=== PATIENT | male | born 1950 | race Asian ===

== ENCOUNTER 2023-05-11 04:25 | Inpatient (IN) | payer OTHER ==
[~2023-05-11] VITALS: Ht 162.6 cm; Wt 71.7 kg
[2023-05-11 04:30] VITALS: BP 153/83; PULSE 68; RESP 16; TEMP 97.8; O2SAT 98
[2023-05-11] MEDS ORDERED: ONDANSETRON 4 MG/2 ML VIAL IVP ONE (05:05)
[2023-05-11] MEDS ORDERED: MORPHINE SULFATE 4 MG/ML SYR IVP ONE ×2 (05:05→07:55)
[2023-05-11 05:41] LABS: BASOPHILS % (AUTO) 0.4 % (0.0-2.0); EOSINOPHILS % (AUTO) 0.2 % (0.0-4.0); HEMOGLOBIN 13.7 g/dL (12.0-18.0); LYMPHOCYTES # (AUTO) 1.1 K/uL (2.0-11.5); LYMPHOCYTES % (AUTO) 12.7 % (20.5-51.1); MEAN CORPUSCULAR HEMOGLOBIN 31 pg (27-31); MEAN CORPUSCULAR HGB CONC 34 g/dL (33-37); MEAN CORPUSCULAR VOLUME 90.5 fL (80-94); MONOCYTES # (AUTO) 0.3 K/uL (0.8-1.0); MONOCYTES % (AUTO) 3.9 % (1.7-9.3); NEUTROPHILS # (AUTO) 7.3 K/uL (1.8-7.7); NEUTROPHILS % (AUTO) 82.8 % (42.2-75.2); PLATELET COUNT (AUTO) 188 K/uL (140-450); RED BLOOD CELL COUNT(AUTO) 4.42 MIL/uL (4.20-6.10); WHITE BLOOD COUNT (AUTO) 8.8 K/uL (4.8-10.8)
[2023-05-11 05:43] LABS: APPEARANCE,URINE CLEAR (CLEAR); BILIRUBIN,URINE NEGATIVE (NEGATIVE); BLOOD, URINE NEGATIVE (NEGATIVE); COLOR,URINE YELLOW (YELLOW); LEUKOCYTE ESTERASE ,URINE NEGATIVE (NEGATIVE); NITRITE, URINE NEGATIVE (NEGATIVE); PH,URINE 6.5 (5.0-9.0); PROTEIN,URINE NEGATIVE (NEGATIVE); UGLUCOSE NEGATIVE (NEGATIVE); UROBILINOGEN,URINE 0.2 EU/dL (0.2 - 1)
[2023-05-11 06:13] LABS: ALBUMIN 4.3 g/dL (3.4-5.0); ANION GAP 13.9 (8-16); CALCIUM 9.2 mg/dL (8.5-10.1); CARBON DIOXIDE 27.7 mmol/L (21-32); CREATININE 1.3 mg/dL (0.6-1.3); POTASSIUM 3.6 mmol/L (3.5-5.1); TOTAL BILIRUBIN 0.6 mg/dL (0.0-1.0); TOTAL PROTEIN, SERUM 7.8 g/dL (6.4-8.2)
[2023-05-11] MEDS ORDERED: DICYCLOMINE HCL LIQUID 20 MG, ALUMINUM HYD/MAG/SIMETHICONE 30 ML, LIDOCAINE VISCOUS 2% ... PO ONE ×3 (06:25)
[2023-05-11] MEDS ORDERED: ALUMINUM HYD/MAG/SIMETHICONE 30 ML UDC ONE ×2 (06:37→06:39)
[2023-05-11] MEDS ORDERED: DICYCLOMINE HCL LIQUID 10 MG/5 ML UDC ONE (06:37)
[2023-05-11] MEDS ORDERED: LORazepam 2 MG/ML VIAL IVP PRN (08:25)
[2023-05-11] MEDS ORDERED: ZOLPIDEM 10 MG TAB PO PRN (08:25)
[2023-05-11] MEDS ORDERED: ONDANSETRON 4 MG/2 ML VIAL IVP PRN (08:25)
[2023-05-11] MEDS ORDERED: MAG SULF 2000 MG/WATER PREMIX 50 ML IV PRN (08:25)
[2023-05-11] MEDS ORDERED: POTASSIUM CHLORIDE 10 MEQ TABER PO PRN (08:25)
[2023-05-11] MEDS ORDERED: DOCUSATE SODIUM 100 MG GELCAP PO PRN (08:25)
[2023-05-11] MEDS ORDERED: MORPHINE SULFATE 2 MG/ML SYR IVP PRN (08:25)
[2023-05-11] MEDS: DEXT 5% / NACL 0.45% 1,000 ML IV SCH ×2 (10:46→22:07)
[2023-05-11] MEDS ORDERED: LISI-487 PO (20:36)
[2023-05-11] MEDS ORDERED: ALLO100T21 PO (20:36)
[2023-05-11 21:44] VITALS: PULSE 67; RESP 16; O2SAT 95
[2023-05-12 04:45] VITALS: BP 98/54; PULSE 88; RESP 18; TEMP 98.3; O2SAT 95
[2023-05-12 07:02] LABS: BASOPHILS % (AUTO) 0.1 % (0.0-2.0); HEMATOCRIT 39.5 % (36-52); HEMOGLOBIN 13.5 g/dL (12.0-18.0); LYMPHOCYTES # (AUTO) 0.3 K/uL (2.0-11.5); LYMPHOCYTES % (AUTO) 4.2 % (20.5-51.1); MEAN CORPUSCULAR HEMOGLOBIN 31 pg (27-31); MEAN CORPUSCULAR HGB CONC 34 g/dL (33-37); MEAN CORPUSCULAR VOLUME 91.6 fL (80-94); MONOCYTES # (AUTO) 0.1 K/uL (0.8-1.0); MONOCYTES % (AUTO) 1.8 % (1.7-9.3); NEUTROPHILS # (AUTO) 7.4 K/uL (1.8-7.7); NEUTROPHILS % (AUTO) 93.9 % (42.2-75.2); PLATELET COUNT (AUTO) 135 K/uL (140-450); RED BLOOD CELL COUNT(AUTO) 4.31 MIL/uL (4.20-6.10); RED CELL DISTRIBUTION WIDTH 13.7 % (11.6-13.7); WHITE BLOOD COUNT (AUTO) 7.9 K/uL (4.8-10.8)
[2023-05-12 08:00] VITALS: BP 109/57; PULSE 89; RESP 18; TEMP 98.1; O2SAT 93; O2SAT 96
[2023-05-12 08:50] LABS: ANION GAP 14.7 (8-16); CARBON DIOXIDE 24.8 mmol/L (21-32); CREATININE 1.2 mg/dL (0.6-1.3); POTASSIUM 3.5 mmol/L (3.5-5.1)
[2023-05-12 09:54] LABS: INR 1.32 (0.8-1.2); PARTIAL THROMBOPLASTIN TIME 31.3 secs (22-35.6); PROTHROMBIN TIME 13.6 secs (10.8-13.4)
[2023-05-12 12:00] VITALS: BP 100/55; PULSE 91; RESP 18; TEMP 99.9; O2SAT 96
[2023-05-12] MEDS ORDERED: HYDROmorphone 1 MG/ML AMP IVP PRN (14:05)
[2023-05-12] MEDS ORDERED: traMADol 50 MG TAB PO PRN (14:05)
[2023-05-12 16:00] VITALS: BP 109/57; PULSE 89; RESP 18; TEMP 98.1; O2SAT 96
[2023-05-12 16:25] LABS: ALBUMIN 3.6 g/dL (3.4-5.0); BILIRUBIN,DIRECT 0.7 mg/dL (0.0-0.3); TOTAL BILIRUBIN 2.3 mg/dL (0.0-1.0)
[2023-05-12 20:00] VITALS: BP 99/53; PULSE 83; RESP 18; TEMP 98.5; O2SAT 98
[2023-05-12] MEDS: DEXT 5% / NACL 0.45% 1,000 ML IV SCH (22:25)
[2023-05-13] MEDS: ACETAMINOPHEN 325 MG TAB PO PRN ×2 (02:18→12:41)
[2023-05-13 06:27] LABS: HEMATOCRIT 36.4 % (36-52); HEMOGLOBIN 12.5 g/dL (12.0-18.0); MEAN CORPUSCULAR HEMOGLOBIN 31 pg (27-31); MEAN CORPUSCULAR HGB CONC 34 g/dL (33-37); MEAN CORPUSCULAR VOLUME 91.4 fL (80-94); PLATELET COUNT (AUTO) 118 K/uL (140-450); RED BLOOD CELL COUNT(AUTO) 3.99 MIL/uL (4.20-6.10); RED CELL DISTRIBUTION WIDTH 13.9 % (11.6-13.7); WHITE BLOOD COUNT (AUTO) 10.2 K/uL (4.8-10.8)
[2023-05-13] MEDS ORDERED: NACL 0.9% 500 ML IV ONE (06:35)
[2023-05-13 06:48] LABS: ANION GAP 10.5 (8-16); CALCIUM 8.3 mg/dL (8.5-10.1); CREATININE 1.4 mg/dL (0.6-1.3); POTASSIUM 3.5 mmol/L (3.5-5.1)
[2023-05-13 07:43] LABS: EOSINOPHILS % (MANUAL) 1 % (0-4); LYMPHOCYTES % (MANUAL) 4 % (20-46); MONOCYTES % (MANUAL) 3 % (5-12)
[2023-05-13 08:00] VITALS: BP 90/57; PULSE 72; PULSE 78; RESP 18; RESP 20; TEMP 97.4; O2SAT 100; O2SAT 98
[2023-05-13] MEDS: DEXT 5% / NACL 0.45% 1,000 ML IV SCH ×2 (10:55→23:25)
[2023-05-13] MEDS ORDERED: LISI-487 PO (11:34)
[2023-05-13] MEDS ORDERED: SIMV-373 PO (11:37)
[2023-05-13] MEDS: metroNIDAZOLE 500 MG/NS PREMIX 100 ML IV SCH ×2 (13:40→21:39)
[2023-05-13 13:45] LABS: LACTIC ACID 4.8 mmol/L (0.4-2.0)
[2023-05-13] MEDS ORDERED: NACL 0.9% 1,000 ML IV ONE (13:50)
[2023-05-13 18:53] VITALS: BP 95/59; PULSE 104; RESP 18; TEMP 99.4; O2SAT 94
[2023-05-13 20:00] VITALS: BP 87/55; PULSE 91; RESP 17; TEMP 98.9; O2SAT 94
[2023-05-13] MEDS ORDERED: SIMVASTATIN 40 MG TAB PO SCH (21:00)
[2023-05-14 04:00] VITALS: BP 92/61; PULSE 58; RESP 16; TEMP 207.7; TEMP 97.6; O2SAT 94
[2023-05-14] MEDS: metroNIDAZOLE 500 MG/NS PREMIX 100 ML IV SCH ×2 (04:45→13:44)
[2023-05-14 06:22] LABS: INR 1.32 (0.8-1.2); PARTIAL THROMBOPLASTIN TIME 36.8 secs (22-35.6); PROTHROMBIN TIME 13.6 secs (10.8-13.4)
[2023-05-14 06:27] LABS: ANION GAP 9.5 (8-16); CALCIUM 7.6 mg/dL (8.5-10.1); CARBON DIOXIDE 25.8 mmol/L (21-32); CREATININE 1.2 mg/dL (0.6-1.3); POTASSIUM 4.3 mmol/L (3.5-5.1)
[2023-05-14 06:43] LABS: BASOPHILS % (AUTO) 0.1 % (0.0-2.0); EOSINOPHILS # (AUTO) 0.1 K/uL (0-0.4); EOSINOPHILS % (AUTO) 0.5 % (0.0-4.0); HEMATOCRIT 32.2 % (36-52); HEMOGLOBIN 10.8 g/dL (12.0-18.0); LYMPHOCYTES # (AUTO) 1.4 K/uL (2.0-11.5); LYMPHOCYTES % (AUTO) 10.9 % (20.5-51.1); MEAN CORPUSCULAR HEMOGLOBIN 31 pg (27-31); MEAN CORPUSCULAR HGB CONC 34 g/dL (33-37); MEAN CORPUSCULAR VOLUME 92.2 fL (80-94); MONOCYTES # (AUTO) 0.8 K/uL (0.8-1.0); MONOCYTES % (AUTO) 6.5 % (1.7-9.3); NEUTROPHILS # (AUTO) 10.2 K/uL (1.8-7.7); RED BLOOD CELL COUNT(AUTO) 3.49 MIL/uL (4.20-6.10); RED CELL DISTRIBUTION WIDTH 14.4 % (11.6-13.7); WHITE BLOOD COUNT (AUTO) 12.4 K/uL (4.8-10.8)
[2023-05-14 06:49] LABS: PLATELET COUNT (AUTO) 80 K/uL (140-450)
[2023-05-14 08:00] VITALS: BP 98/57; PULSE 67; RESP 16; TEMP 97.5; O2SAT 99
[2023-05-14 08:47] VITALS: PULSE 89; RESP 20; O2SAT 99
[2023-05-14] MEDS ORDERED: allopurinoL 100 MG TAB PO SCH (09:00)
[2023-05-14] MEDS ORDERED: lisinopriL 20 MG TAB PO SCH (09:00)
[2023-05-14] MEDS: DEXT 5% / NACL 0.45% 1,000 ML IV SCH (09:15)
[2023-05-14 14:14] LABS: ALBUMIN 2.4 g/dL (3.4-5.0); BILIRUBIN,DIRECT 1.2 mg/dL (0.0-0.3); TOTAL BILIRUBIN 1.8 mg/dL (0.0-1.0); TOTAL PROTEIN, SERUM 5.8 g/dL (6.4-8.2)
== END 2023-05-14 16:20 | disposition home or self-care (01) | DRG 444 ==
LOC: MED 04:25 → MTU 08:28
PROVIDERS: ADMIT General Practice; ATTEND General Practice
DX: K80.70 Calculus of gallbladder and bile duct without cholecystitis without obstruction (principal); E43 Unspecified severe protein-calorie malnutrition; R79.1 Abnormal coagulation profile; D69.6 Thrombocytopenia, unspecified; D64.9 Anemia, unspecified; K21.9 Gastro-esophageal reflux disease without esophagitis; Z20.822 Contact with and (suspected) exposure to COVID-19; E83.52 Hypercalcemia; E78.00 Pure hypercholesterolemia, unspecified; I10 Essential (primary) hypertension; Z90.49 Acquired absence of other specified parts of digestive tract; Z87.11 Personal history of peptic ulcer disease; Z83.3 Family history of diabetes mellitus; Z80.0 Family history of malignant neoplasm of digestive organs; Z68.27 Body mass index [BMI] 27.0-27.9, adult
CPT/HCPCS: 36415; 71045; 76705; 80048; 80053; 80076; 81003; 82948; 83036; 83605; 83690; 83735; 85025; 85610; 85730; 87040; 87081; 93005; 96374; 96375; 96376; 99285; J0696; J1170; J2060; J2270; J2405; J3475; J3490; J7060; Q0092